=== PATIENT | male | born 2005 | race Two or more races ===

== ENCOUNTER 2024-03-08 17:11 | Emergency (ER) | payer MEDICAID, OTHER ==
[~2024-03-08] VITALS: Ht 172.7 cm; Wt 77.2 kg
[2024-03-08 20:56] VITALS: BP 120/76; PULSE 119; RESP 22; TEMP 99.3; O2SAT 100
[2024-03-08] MEDS: NEOMYCIN-BACITRACIN-POLYM UNITDOSE PKG TOP OINT TOP ONE (21:01)
[2024-03-08] MEDS: KETOROLAC TROMETH 60MG/2ML VIAL IM ONE (21:02)
[2024-03-08] MEDS: cefTRIAXone SOD 1,000 MG VL IM ONE (21:02)
[2024-03-08] MEDS: SULFAMETHOX W/TRIMETH(800/160MG) DS TAB PO ONE (21:02)
[2024-03-08] MEDS: LIDOCAINE 1% HCL (LOCAL ANESTH.) INJ 20ML MDV ONE (21:03)
== END 2024-03-08 20:34 | disposition left against medical advice (07) ==
LOC: EDBD 17:11 → ER 17:11
DX: M79.672 Pain in left foot (principal); M79.671 Pain in right foot; Z53.21 Procedure and treatment not carried out due to patient leaving prior to being seen by health care provider
CPT/HCPCS: 96372; J0696; J1885; J2001